=== PATIENT | male | born 1990 | race African-American/Black ===

== ENCOUNTER 2017-01-08 10:35 | Inpatient (IN) | payer OTHER ==
[2017-01-08] VITALS (7 sets, daily range): BP systolic 108–156; BP diastolic 58–91; O2SAT 95
[2017-01-08] MEDS: PANTOPRAZOLE 40MG INJ (PROTONIX) (C9113) IV SCH (09:00)
[2017-01-08] MEDS ORDERED: NS 1,000 ML IV SCH (10:43)
[2017-01-08 10:52] LABS: VENOUS BASE EXCESS 0.1 (-2.0-2.0); VENOUS O2 SATURATION 79.2 % (60.0-80.0); VENOUS PARTIAL PRESSURE CO2 59.5 mmHg (38.0-50.0); VENOUS PARTIAL PRESSURE O2 43.8 mmHg (30.0-50.0); VENOUS STANDARD HCO3 24.1 MEQ/L; VENOUS TOTAL CO2 29.9 MEQ/L (24.0-28.0)
[2017-01-08 10:56] LABS: BASO % 0.2 % (0.0-1.0); EOS # 0.1 K/mm3 (0.0-0.50); EOS % 1.7 % (0.0-3.0); LARGE UNSTAINED CELL # 0.1 K/mm3 (0.0-0.4); LARGE UNSTAINED CELL % 1.2 % (0.0-4.0); LYMPH # 1.5 K/mm3 (1.5-6.5); LYMPH % 23.4 % (24.0-44.0); MEAN CORPUSCULAR HEMOGLOBIN 27.6 pg (27.0-33.0); MEAN CORPUSCULAR HGB CONC 31.9 g/dl (32.0-36.5); MEAN CORPUSCULAR VOLUME 86.4 fl (80.0-96.0); MONO # 0.5 K/mm3 (0.0-0.8); MONO % 7.4 % (0.0-5.0); NEUTROPHILS # 4.2 K/mm3 (1.8-7.7); NEUTROPHILS % 66.1 % (36.0-66.0); PLATELET COUNT, AUTOMATED 175 k/mm3 (150-450); WHITE BLOOD COUNT 6.3 K/mm3 (4.0-10.0)
[2017-01-08] MEDS ORDERED: LORazepam 2 MG/ML VIAL (J2060) As Ordered ONE ×3 (10:58→12:15)
[2017-01-08 11:15] LABS: ABG PARTIAL PRESSURE CO2 51.2 mmHg (35.0-45.0); ABG PARTIAL PRESSURE O2 471.6 mmHg (75.0-100.0); ABG STANDARD HCO3 22.8 MEQ/L (22.0-26.0); ABG TOTAL CO2 26.5 MEQ/L (22.0-29.0); ABG pH (ARTERIAL) 7.306 UNITS (7.350-7.450)
[2017-01-08 11:27] LABS: ALBUMIN 3.8 GM/DL (3.2-5.2); ALBUMIN/GLOBULIN RATIO 1.23 (1.00-1.93); ALKALINE PHOSPHATASE 72 U/L (45-117); ALT/SGPT 29 U/L (12-78); ANION GAP 6 MEQ/L (8-16); AST/SGOT 26 U/L (15-37); BILIRUBIN,DIRECT < 0.1 MG/DL (0.0-0.2); BILIRUBIN,TOTAL 0.3 MG/DL (0.2-1.0); BLOOD UREA NITROGEN 10 MG/DL (7-18); CARBON DIOXIDE LEVEL 28 MEQ/L (21-32); CHLORIDE LEVEL 107 MEQ/L (98-107); CREATININE FOR GFR 1.21 MG/DL (0.70-1.30); GLOMERULAR FILTRATION RATE > 60.0 (>60); GLUCOSE, FASTING 129 MG/DL (70-105); POTASSIUM SERUM 4.3 MEQ/L (3.5-5.1); SODIUM LEVEL 141 MEQ/L (136-145); TOTAL PROTEIN 6.9 GM/DL (6.4-8.2)
--- NOTE | 2017-01-08 11:41 | REP ---
PORTABLE CHEST X-RAY: Single view. HISTORY: Altered mental status. FINDINGS: The lungs are poorly inflated but free of infiltrate. Cardiomediastinal silhouette is unremarkable. Pleural angles are sharp. Pulmonary vasculature is not increased. IMPRESSION: Low level of inspiration. No active disease. Signed by Jr Nguyễn MD 01/08/2017 03:52 P
[2017-01-08 11:44] LABS: OSMOLALITY SERUM 295 MOSM/KG (275-295)
[2017-01-08] MEDS ORDERED: NS 1,000 ML IV ONE (11:45)
--- NOTE | 2017-01-08 11:45 | REP ---
Clinical: Abdominal pain. Technique: Axial noncontrast images from the lung bases to the pubic symphysis with coronal and sagittal re-formations. Findings: Lung bases demonstrate trace basilar atelectasis (right greater than left). Liver, spleen, pancreas, gallbladder, bilateral adrenal glands and kidneys are normal for noncontrast evaluation. The enteric system demonstrates fecal stasis and constipation without obstruction or acute inflammatory process. Normal terminal ileum and appendix identified in the right lower quadrant. Pelvis demonstrates normal bladder and age appropriate prostate/seminal vesicles. No ascites. No free air. No obvious adenopathy. Abdominal aorta without aneurysm. Musculoskeletal structures are intact. Impression: Trace basilar atelectasis (right greater than left). Fecal stasis. No acute abdominopelvic pathology appreciated. Signed by Sharath Kaye MD 01/08/2017 11:37 A
--- NOTE | 2017-01-08 11:48 | REP ---
Clinical: Chest pain. Findings: Lung pineda demonstrate mild bibasilar atelectasis (right greater than left). No pleural effusion or pneumothorax. No significant nodule or mass lesion. Tracheobronchial tree is patent. No obvious adenopathy. Mediastinum demonstrates normal thoracic aorta and heart/pericardium. Surrounding musculoskeletal structures are intact. Impression: Mild bibasilar atelectasis (right greater than left). Signed by Sharath Kaye MD 01/08/2017 11:39 A
--- NOTE | 2017-01-08 11:50 | REP ---
CT BRAIN WITHOUT CONTRAST: 01/08/2017. Clinical history: Altered mental status. Findings: No prior studies. The material analyst film shows oxygen mask over the face. Soft tissue and bone windows for each slice level show lateral ventricles midline, symmetric and without dilatation or displacement. Third and fourth ventricles intact. Basal ganglia were symmetric. Escoto-white junction differentiation is maintained. Cortical stripe preserved. Quadrigeminal plate and suprasellar cisterns are intact. There is no vascular territory infarct, intracranial hemorrhage, mass or mass effect. Cortical stripe preserved. Brainstem and cerebellum intact. There may be some mild cerebellar tonsillar ectopia. Mastoids and the visualized sinuses were clear. The skull base and calvarium are without fracture or focal lesion. Impression: 1. There is no intracranial hemorrhage, acute infarct, edema, mass, mass effect or extra-axial fluid collection. Basal cisterns intact. 2. White matter tracts are preserved. The mastoids, visualized sinuses, skull base and calvarium grossly intact. Signed by Bill Hickman MD 01/08/2017 03:48 P
[2017-01-08] MEDS ORDERED: ETOMIDATE INJ 20MG/10ML VIAL As Ordered ONE (11:52)
[2017-01-08] MEDS ORDERED: SUCCINYLCHOLINE INJ 200 MG/10 ML VIAL (J0330) As Ordered ONE (11:53)
[2017-01-08] MEDS ORDERED: PROPOFOL 1,000 MG/100 ML VIAL As Ordered ONE (12:02)
[2017-01-08 12:26] LABS: METHADONE URINE NEGATIVE (NEGATIVE)
--- NOTE | 2017-01-08 12:26 | REP ---
Clinical: Status post intubation. Comparison: 01/08/2017 and 11:06 a.m.. Findings: Endotracheal tube 3 cm above the merissa. Nasogastric tube courses below left hemidiaphragm. Mediastinum and cardiac silhouette are normal. Medial right lower lobe atelectasis cannot be excluded. The remainder of lung pineda are well-aerated and clear. No pneumothorax. No effusion. Skeletal structures intact. Impression: Lines and tubes in satisfactory position. Cannot exclude medial right lower lobe atelectasis. Signed by Sharath Kaye MD 01/08/2017 12:17 P
[2017-01-08] MEDS ORDERED: MIDAZOLAM INJ 2 MG/2 ML VIAL (J2250) As Ordered ONE (12:31)
[2017-01-08] MEDS ORDERED: REFRIGERATOR IV KEYS XX PRN ×2 (12:45→14:45)
[2017-01-08] MEDS ORDERED: MIDAZOLAM HCL 50 MG in D5W 40 ML IV SCH (12:45)
[2017-01-08] MEDS ORDERED: MIDAZOLAM HCL 100 MG in D5W 80 ML IV SCH (13:00)
[2017-01-08] MEDS ORDERED: levETIRAcetam INJection 1,000 MG in D5W 100 ML IV ONE (13:15)
[2017-01-08] MEDS: HEPARIN SOD (PORCINE) 5000 UNITS/ML VIAL SC SCH ×2 (14:00→21:21)
[2017-01-08 14:13] LABS: THYROXINE (T4) 12.2 UG/DL (4.5-12.0)
[2017-01-08 14:23] LABS: ABG BASE EXCESS -2.4 (-2.0-2.0); ABG HCO3 23.3 MEQ/L (22.0-26.0); ABG PARTIAL PRESSURE CO2 43.8 mmHg (35.0-45.0); ABG PARTIAL PRESSURE O2 134.5 mmHg (75.0-100.0); ABG STANDARD HCO3 22.5 MEQ/L (22.0-26.0); ABG TOTAL CO2 24.7 MEQ/L (22.0-29.0); ABG pH (ARTERIAL) 7.344 UNITS (7.350-7.450)
[2017-01-08] MEDS: D5W/LR 1,000 ML IV SCH (14:45)
[2017-01-08] MEDS ORDERED: PROPOFOL 200 MG/20 ML VIAL IV ONE ×2 (14:45)
[2017-01-08] MEDS ORDERED: ETOMIDATE INJ 20MG/10ML VIAL IV ONE (14:45)
[2017-01-08] MEDS ORDERED: MORPHINE 2 MG/ML 1ML SYRINGE IV PRN (14:45)
[2017-01-08] MEDS ORDERED: SUCCINYLCHOLINE INJ 200 MG/10 ML VIAL (J0330) IV ONE (14:45)
[2017-01-08] MEDS ORDERED: PROPOFOL 1,000 MG in APPROPRIATE DILUENT 1 EA IV SCH (14:45)
[2017-01-08] MEDS ORDERED: LORazepam 2 MG TAB PO STA ×3 (14:51→14:52)
[2017-01-08] MEDS ORDERED: MIDAZOLAM INJ 2 MG/2 ML VIAL (J2250) IV ONE ×4 (15:00→15:30)
[2017-01-08] MEDS ORDERED: LORazepam 2 MG/ML VIAL (J2060) IV STA ×3 (15:11)
[2017-01-08] MEDS ORDERED: ATROPINE SULF 1MG/10ML SYRINGE (J0461) IV STA (15:12)
[2017-01-08] MEDS: MIDAZOLAM HCL 100 MG in D5W 80 ML IV SCH (16:00)
[2017-01-08] MEDS: IPRATROPIUM 0.5MG/ALBUTEROL 2.5MG INH SOL UD 3ML (DUONEB)(J7620) NEB SCH ×3 (16:00→23:12)
--- NOTE | 2017-01-08 17:13 | REP ---
Clinical: Hypoxic injury . Comparison: 01/08/2017 and 11:11 a.m. . Findings: The ventricles, sulci, and cisterns are normal in position and appearance. Escoto-white differentiation is maintained. No acute intracranial hemorrhage, mass/mass effect, pathology or trauma/injury. No evidence for acute infarction. No extra-axial fluid collection. Calvarium is intact. Paranasal sinuses and mastoid air cells are clear. Impression: Normal noncontrast head CT. No evidence for acute intracranial pathology or trauma/injury. Signed by Sharath Kaye MD 01/08/2017 05:04 P
[2017-01-08] MEDS: PROPOFOL 1,000 MG in APPROPRIATE DILUENT 1 EA IV SCH (17:29)
[2017-01-08 18:17] LABS: ABG BASE EXCESS 0.9 (-2.0-2.0); ABG HCO3 24.6 MEQ/L (22.0-26.0); ABG PARTIAL PRESSURE CO2 36.7 mmHg (35.0-45.0); ABG PARTIAL PRESSURE O2 174.7 mmHg (75.0-100.0); ABG STANDARD HCO3 25.3 MEQ/L (22.0-26.0); ABG TOTAL CO2 25.8 MEQ/L (22.0-29.0); ABG pH (ARTERIAL) 7.445 UNITS (7.350-7.450)
--- NOTE | 2017-01-08 19:33 | ECGEPIP ---
Stationary ECG Study [facility] - ED Test Date: 2017-01-08 Pat Name: PARMINDER CUEVAS Department: Room: - Gender: M Bakery Clerk: michael : 1990 Requested By: Ailin Castorena Order Number: [id number] Reading MD: Jimi Sutton Measurements Intervals [place] Rate: 97 P: 48 SD: 142 QRS: 16 QRSD: 109 T: 36 QT: 333 QTc: 423 Interpretive Statements SINUS RHYTHM INDETERMINATE AXIS POSSIBLE LAE INCOMPLETE RIGHT BUNDLE BRANCH BLOCK NO PRIORS Electronically Signed On 01-08-2017 19:33:17 EDT by Jimi Sutton
[2017-01-08] MEDS: CHLORHEXIDINE ORAL RINSE 0.12%/15ML 120ML BOTTLE MT SCH (20:46)
[2017-01-08] MEDS: levETIRAcetam INJection 500 MG in D5W MINI-BAG PLUS 100 ML IV SCH ×2 (20:47→21:17)
[2017-01-08] MEDS ORDERED: levETIRAcetam INJection 1,000 MG in D5W 100 ML IV SCH (21:00)
[2017-01-09] VITALS (21 sets, daily range): BP systolic 110–168; BP diastolic 55–94; O2SAT 100
[2017-01-09] MEDS: D5W/LR 1,000 ML IV SCH ×3 (00:22→16:14)
[2017-01-09] MEDS: PROPOFOL 1,000 MG in APPROPRIATE DILUENT 1 EA IV SCH ×4 (00:22→18:10)
[2017-01-09] MEDS: IPRATROPIUM 0.5MG/ALBUTEROL 2.5MG INH SOL UD 3ML (DUONEB)(J7620) NEB SCH ×6 (03:12→23:33)
[2017-01-09] MEDS: MIDAZOLAM HCL 100 MG in D5W 80 ML IV SCH (03:22)
[2017-01-09 05:05] LABS: BASO % 0.3 % (0.0-1.0); EOS # 0.2 K/mm3 (0.0-0.50); EOS % 2.1 % (0.0-3.0); LARGE UNSTAINED CELL # 0.2 K/mm3 (0.0-0.4); LARGE UNSTAINED CELL % 1.7 % (0.0-4.0); LYMPH # 2.3 K/mm3 (1.5-6.5); LYMPH % 23.1 % (24.0-44.0); MEAN CORPUSCULAR HEMOGLOBIN 27.8 pg (27.0-33.0); MEAN CORPUSCULAR HGB CONC 32.1 g/dl (32.0-36.5); MEAN CORPUSCULAR VOLUME 86.7 fl (80.0-96.0); MONO # 0.9 K/mm3 (0.0-0.8); MONO % 9.2 % (0.0-5.0); NEUTROPHILS # 5.9 K/mm3 (1.8-7.7); NEUTROPHILS % 63.6 % (36.0-66.0); PLATELET COUNT, AUTOMATED 153 k/mm3 (150-450); RED CELL DISTRIBUTION WIDTH 13.8 % (11.5-14.5); WHITE BLOOD COUNT 9.2 K/mm3 (4.0-10.0)
[2017-01-09] MEDS: HEPARIN SOD (PORCINE) 5000 UNITS/ML VIAL SC SCH ×3 (05:33→21:44)
[2017-01-09 05:34] LABS: ALKALINE PHOSPHATASE 58 U/L (45-117); ALT/SGPT 24 U/L (12-78); ANION GAP 8 MEQ/L (8-16); AST/SGOT 30 U/L (15-37); BILIRUBIN,TOTAL 0.6 MG/DL (0.2-1.0); BLOOD UREA NITROGEN 5 MG/DL (7-18); CALCIUM LEVEL 8.4 MG/DL (8.5-10.1); CARBON DIOXIDE LEVEL 22 MEQ/L (21-32); CHLORIDE LEVEL 115 MEQ/L (98-107); CHOLESTEROL LEVEL 165 MG/DL (< 200); CREATININE FOR GFR 1.04 MG/DL (0.70-1.30); GLOMERULAR FILTRATION RATE > 60.0 (>60); GLUCOSE, FASTING 90 MG/DL (70-105); PHOSPHORUS LEVEL 2.2 MG/DL (2.5-4.9); SODIUM LEVEL 145 MEQ/L (136-145); TRIGLYCERIDES LEVEL 131 MG/DL (<150)
[2017-01-09 05:35] LABS: ALBUMIN 3.3 GM/DL (3.2-5.2); ALBUMIN/GLOBULIN RATIO 0.97 (1.00-1.93); TOTAL PROTEIN 6.7 GM/DL (6.4-8.2)
[2017-01-09 05:52] LABS: ABG BASE EXCESS 2.7 (-2.0-2.0); ABG HCO3 26.8 MEQ/L (22.0-26.0); ABG PARTIAL PRESSURE CO2 39.2 mmHg (35.0-45.0); ABG PARTIAL PRESSURE O2 140.1 mmHg (75.0-100.0); ABG STANDARD HCO3 26.9 MEQ/L (22.0-26.0); ABG pH (ARTERIAL) 7.452 UNITS (7.350-7.450)
[2017-01-09] MEDS: PANTOPRAZOLE 40MG INJ (PROTONIX) (C9113) IV SCH (07:44)
[2017-01-09] MEDS: levETIRAcetam INJection 500 MG in D5W MINI-BAG PLUS 100 ML IV SCH ×4 (07:45→20:13)
[2017-01-09] MEDS: CHLORHEXIDINE ORAL RINSE 0.12%/15ML 120ML BOTTLE MT SCH ×2 (07:45→20:13)
--- NOTE | 2017-01-09 07:47 | REP ---
Clinical: Respiratory failure. Comparison: 01/08/2017 at 12:18 p.m. Findings: Endotracheal tube is 1 cm from the merissa. Nasogastric tube courses below left hemidiaphragm. Mediastinum and cardiac silhouette are stable. Lung pineda are relatively clear without obvious consolidation, effusion, or pneumothorax. Skeletal structures intact. Impression: Endotracheal tube approaches the merissa and may warrant reevaluation. Signed by Sharath Kaye MD 01/09/2017 07:38 A
[2017-01-09] MEDS: PIPERACILLIN/TAZOBACTAM SOD 3.375 GM in D5W MINI-BAG PLUS 50 ML IV SCH ×2 (11:11→17:49)
[2017-01-09] MEDS: ACETAMINOPHEN 325 MG/10.15 ML UDC GT PRN ×2 (11:11→18:10)
[2017-01-09] MEDS: MIDAZOLAM INJ 2 MG/2 ML VIAL (J2250) IV PRN ×4 (15:09→19:50)
--- NOTE | 2017-01-09 16:15 | HPE ---
DATE OF ADMISSION: 01/08/2017 CHIEF COMPLAINT: Patient ingested unknown substance. HISTORY OF PRESENT ILLNESS: This is a 26-year-old male with an unobtainable past medical history who came in unresponsive via ambulance from [facility]. The patient's information was obtained by the correction officers (COs) of the care home. They state that the patient was found unresponsive at 9 a.m. in his care home cell and he was foaming by the mouth. Once patient was brought to the infirmary room of the care home, he was combative and thrashing around. They state that [facility] En route to the emergency room (ER) , the COs note that the patient was speaking gibberish; it was like broken language or a different language that he was trying to enunciate. The COs denies any any witness seizure activities. In the ER, The patient was combative and thrashing around. He was given the following medication: 20 mg of etomidate, 6 mg of Ativan, 100 mg of succinylcholine, 40 mg IV of propofol two times. The patient had to have a four-point restraint while in the ER. Patient was intubated in the ER at 12 o'clock pm by Dr. العراقي. The propofol drip was started at 5 mcg/kg. When I examined the patient, the propofol drip was set at 35 mcg. Per nursing, the patient was combative when he came into the ER. Ventilation settings in the ER were initially set on SIMV volume control, plus pressure support with volume tidal of 480, FiO2 of 30% at SIMV volume control for pressure support of 16 and a PEEP of 5. Minute ventilation was 7.6. Patient also had a midazolam drip of 6 mL per hour at the time of exam. Blood gases drawn at 11:07, arterial showed an arterial blood gas (ABG) pH of 7.306, an ABG pCO2 of 51.2, an ABG pO2 of 47.6 with an ABG oxygen saturation of 99.9. When we saw the patient later on in the afternoon, we changed the ventilation settings to pressure-regulated volume control setting. The patient was resting comfortably on the bed with some minimal muscle contractility of the upper and lower extermity. REVIEW OF SYSTEMS: Unobtainable due to patient being intubated and unresponsive. PAST MEDICAL HISTORY: Unobtainable. PAST SURGICAL HISTORY: Unobtainable. PAST HOSPITALIZATION: Unobtainable. ALLERGIES: No known drug allergies. CURRENT MEDICATION: Unobtainable. SOCIAL HISTORY: Unobtainable. PHYSICAL EXAM: Vitals: Temperature 98.4 (rectal). Blood pressure 194/104, mean arterial pressure (MAP) of 134. Respiratory rate of 16. Pulse of 112. Pulse oximeter of 99%. GENERAL: Patient has an endotracheal tube placed. The patient does not look in any acute distress. He is resting comfortably. HEENT: Pupils are dilated and react sluggishly but are reactive. HEART EXAM: S1 and S2 sounds, 2/6, faint but present. No murmurs, gallops, or rubs are appreciated. LUNGS: Clear to auscultate bilaterally. No rhonchi, rales, wheezing, or crackles appreciated. ABDOMEN: Bowel sounds present. No hepatomegaly, splenomegaly, or organomegaly appreciated. No distention of abdomen is appreciated. EXTREMITIES: No peripheral edema or cyanosis appreciated. NEUROLOGICAL: Negative Babinski sign bilaterally. Positive muscle contraction (voluntary) of the upper and lower extremities bilateral. LABS: CBC: WBC 6.3, hemoglobin 14.5, hematocrit 45.3, platelet count of 175, neutrophils 66.1, lymphocytes of 23.4, monocyte 7.4. Chemistries: Sodium of 141, potassium chloride of 107, carbon dioxide of 28, BUN of 10, creatinine of 1.21, anion gap of 6, and fasting glucose of 129. Lactic acid of 2.2, calcium of 9, total bilirubin of 0.3, AST is 26, ALT is 29, alkaline phosphatase of 79, total creatinine kinase 418. Troponin I is less than 0.0.2. Total protein of 6.9, albumin of 3.8. TSH 0.104, repeat 0.101. Free T4 of 4.5, thyroxine 12.2, T3 uptake of 37. Urine myoglobin negative. Toxicology: Salicylate 2.1, acetaminophen less than 2.0, opioid negative, methadone negative, barbiturates negative, phencyclidine (PCP) negative, amphetamines negative, benzodiazepine negative, cocaine negative, cannabinoids negative, ethanol is less than 0.003. Chest CT reported mild bibasilar atelectasis (right greater than the left). Reviewed and cannot disagree with dictated report Latest chest x-ray reported that lines and tubes are in satisfactory position, but it cannot exclude that middle/right lower lobe atelectasis. Reviewed cannot disagree with dictated report. ASSESSMENT: 1. Respiratory failure secondary to unknown drug ingestion. 2. Unknown drug ingestion, suspect Ketamine 3. Altered mental status versus seizure. 4. Bibasilar atelectasis bilaterally. PLAN: We will continue the patient on pressure regulated volume control ventilation settings. Because we are no sure of what the patient has ingested, we will keep the patient ventilated for the next 24 hours and then we will decide to wean and extubate the patient then. Because of the patient's unknown mental status and involuntary/voluntary movements of his muscles, we have consulted Dr. Caldwell, neurology, and will await his recommendations. We have also placed the patient on Keppra with dextrose at 1000 mg at 415 mL per hour. We will continue the patient on midazolam 2 mg IV as needed for agitation. Will also continue giving the patient morphine sulfate 2 mg IV every 2 hours as needed for pain. GI prophylaxis. Protonix 40 mg IV daily, scheduled. Deep venous thrombosis (DVT) prophylaxis. Heparin 5000 units subcutaneously scheduled every 8 hours. Patient is nothing by mouth diet. An orogastric (OG) tube is to be placed. We will be getting daily ABGs, daily portable chest x-rays while the patient is intubated, and a critical care profile panel while the patient is on the intensive care unit (ICU). Also will consider possible EEG inpatient to rule out seizures. My preceptor for this patient encounter was Dr. Lucho Moeller. The preceptor was physically present during the encounter and was fully available. As needed, all aspects of the patient interview, examination, medical decision making process, and medical care plan development were reviewed and approved by the preceptor. The preceptor is aware and concurs with the plan as stated in the body of this note and will attest to such by his/her cosignature. Above reviewed....Continue level of supportive care....Wean as able Ulcer/ DVT prophylaxis in place Await formal neuro eval See orders.....Critically ill MTDD
--- NOTE | 2017-01-09 16:52 | CR ---
DATE OF CONSULTATION: 01/08/2017 REFERRING PROVIDER: Dr. Moeller REASON FOR CONSULTATION: Respiratory failure with abnormal involuntary movements, suspected seizures. The patient is a 26-year-old incarcerated male who presented to [facility] after being found in his cell unresponsive with a pack of ketamine in his pocket. The patient was found and brought to the hospital. He was intubated in the emergency department. He had an episode of hypoxia with a blood oxygen saturation of approximately 40-50% only for a few moments. The patient was intubated and has required heavy sedation on 6 mg of Ativan, Versed 8 mg was given, Keppra 1000 mg was given and a propofol drip and Versed drip at 6 mg an hour has been initiated. During this time the patient was noted to have abnormal involuntary movements of the lower extremities possibly thought to be due to posturing. The patient also had fully dilated pupils measuring about [address] was initially read as normal. However, due to the angle of the study not being centered, there was a question whether there was any pressure onto the brain stem and any blockage of the fourth ventricle due to herniation so a repeat head CT was recommended. On evaluation, the patient is intubated, sedated. He is seen to have tremulousness of his lower extremities at times almost like shivering. He is at times noted to flex at the elbows, raising his arms up towards ET tube. His eyes are closed. Doll's eye is not present. Pupils were 5 mm, but reactive to light. Facial grimacing was limited. The patient did withdraw to noxious stimuli involving the lower extremities minimally. He was able to withdraw to noxious stimuli in his left arm more so than the right arm. Babinski signs were absent bilaterally. The patient was heavily sedated with propofol and due to fear of the patient waking up and pulling out the ET tube, the sedation was not lessened. This likely contributed towards dampening the neurological exam. Head CT was completed stat, reviewed independently, found to not show any acute intracranial disease. Report came back as negative for any acute intracranial process or edema. Escoto-white differentiation in the brain matter was noted. The patient's urine toxicology has been negative. Urine myoglobin was negative. LABORATORY DATA: Showed a lactic acid of 2.2. Normal CBC, CMP. CPK was elevated at 418. AST and ALT were normal. Ammonia level normal at 23. TSH is 0.101 which was low and free T4 was elevated at 4.5 suggesting hyperthyroidism. REVIEW OF SYSTEMS: Unobtainable due to the patient's current medical status. FAMILY HISTORY, SOCIAL HISTORY, PAST MEDICAL HISTORY, PAST SURGICAL HISTORY: Unobtainable. No records were sent with the patient. VITAL SIGNS: Blood pressure is 154/103, pulse rate 81, respiratory rate is 17, temperature 99.1 degrees rectally, 95% oxygenation on 30% FiO2. PHYSICAL EXAMINATION: The patient is lying in bed with tremulousness of the lower extremities which appears to be shivering. The patient is noted to spontaneously have movement of the upper extremities randomly. Pupils are 5 mm, round and reactive to light sluggishly. Doll's eye is negative. Corneal response is present on the left and minimally present on the right. Facial grimacing to noxious stimuli is not adequately present. However, the patient does move away from the noxious stimuli by turning his head. The patient withdraws the upper extremities to noxious stimuli minimally on the right hand, mildly on the left. The patient flexes his quadriceps to noxious stimuli of both lower extremities. Babinski signs are clearly reduced. Deep tendon reflexes are 2+ in the upper extremities and 2+ at the lower extremities. Rest of neurological examination hard to assess with current neurological state and sedation. ASSESSMENT: 1. 26-year-old male with abnormal involuntary movements which did not appear to be seizure-like at this time. Recommend EEG to rule out any subclinical seizures nonetheless. 2. Respiratory failure likely secondary to illicit substance, possibly ketamine as found on the patient's body as reported by the correctional officers at bedside. PLAN: 1. Obtain EEG. 2. Obtain MRI of brain without contrast. 3. Continue Keppra 1000 mg by mouth twice a day, gradually lighten Versed and propofol as medically necessary for neurological assessments and to gradually assess if the patient can be weaned off the ventilator. 4. Will continue to follow.
[2017-01-10] VITALS (21 sets, daily range): BP systolic 113–156; BP diastolic 61–94; O2SAT 100
[2017-01-10] MEDS: PIPERACILLIN/TAZOBACTAM SOD 3.375 GM in D5W MINI-BAG PLUS 50 ML IV SCH ×5 (00:12→22:45)
[2017-01-10] MEDS: D5W/LR 1,000 ML IV SCH ×4 (00:12→22:45)
[2017-01-10] MEDS: PROPOFOL 1,000 MG in APPROPRIATE DILUENT 1 EA IV SCH ×2 (00:12→04:19)
[2017-01-10] MEDS: MIDAZOLAM INJ 2 MG/2 ML VIAL (J2250) IV PRN ×2 (01:37→05:07)
[2017-01-10] MEDS: IPRATROPIUM 0.5MG/ALBUTEROL 2.5MG INH SOL UD 3ML (DUONEB)(J7620) NEB SCH ×2 (03:44→08:20)
[2017-01-10] MEDS: HEPARIN SOD (PORCINE) 5000 UNITS/ML VIAL SC SCH ×3 (05:22→21:16)
[2017-01-10 05:28] LABS: BASO % 0.1 % (0.0-1.0); EOS # 0.1 K/mm3 (0.0-0.50); EOS % 1.2 % (0.0-3.0); LARGE UNSTAINED CELL # 0.2 K/mm3 (0.0-0.4); LARGE UNSTAINED CELL % 1.8 % (0.0-4.0); LYMPH # 2.2 K/mm3 (1.5-6.5); LYMPH % 20.1 % (24.0-44.0); MEAN CORPUSCULAR HEMOGLOBIN 27.9 pg (27.0-33.0); MEAN CORPUSCULAR HGB CONC 33.6 g/dl (32.0-36.5); MEAN CORPUSCULAR VOLUME 83.1 fl (80.0-96.0); MONO # 0.8 K/mm3 (0.0-0.8); NEUTROPHILS # 7.5 K/mm3 (1.8-7.7); NEUTROPHILS % 69.7 % (36.0-66.0); PLATELET COUNT, AUTOMATED 123 k/mm3 (150-450); RED CELL DISTRIBUTION WIDTH 13.8 % (11.5-14.5); WHITE BLOOD COUNT 10.7 K/mm3 (4.0-10.0)
[2017-01-10 05:48] LABS: ALBUMIN 3.3 GM/DL (3.2-5.2); ALBUMIN/GLOBULIN RATIO 1.18 (1.00-1.93); ALKALINE PHOSPHATASE 56 U/L (45-117); ALT/SGPT 24 U/L (12-78); ANION GAP 9 MEQ/L (8-16); AST/SGOT 35 U/L (15-37); BILIRUBIN,TOTAL 0.7 MG/DL (0.2-1.0); BLOOD UREA NITROGEN 5 MG/DL (7-18); CALCIUM LEVEL 8.5 MG/DL (8.5-10.1); CARBON DIOXIDE LEVEL 27 MEQ/L (21-32); CHLORIDE LEVEL 112 MEQ/L (98-107); CHOLESTEROL LEVEL 157 MG/DL (< 200); CREATININE FOR GFR 1.13 MG/DL (0.70-1.30); GLOMERULAR FILTRATION RATE > 60.0 (>60); GLUCOSE, FASTING 95 MG/DL (70-105); PHOSPHORUS LEVEL 3.2 MG/DL (2.5-4.9); POTASSIUM SERUM 3.5 MEQ/L (3.5-5.1); SODIUM LEVEL 148 MEQ/L (136-145); TOTAL PROTEIN 6.1 GM/DL (6.4-8.2); TRIGLYCERIDES LEVEL 95 MG/DL (<150)
[2017-01-10 05:58] LABS: ABG BASE EXCESS 2.4 (-2.0-2.0); ABG HCO3 25.5 MEQ/L (22.0-26.0); ABG PARTIAL PRESSURE CO2 34.6 mmHg (35.0-45.0); ABG PARTIAL PRESSURE O2 98.4 mmHg (75.0-100.0); ABG STANDARD HCO3 26.6 MEQ/L (22.0-26.0); ABG TOTAL CO2 26.5 MEQ/L (22.0-29.0); ABG pH (ARTERIAL) 7.485 UNITS (7.350-7.450)
--- NOTE | 2017-01-10 07:52 | REP ---
Clinical: Respiratory failure. Comparison: 01/09/2017 at 07:02 a.m. Findings: Endotracheal tube is approximately 3.2 cm above the merissa. Nasogastric tube courses below left hemidiaphragm. Mediastinum and cardiac silhouette are normal. The lung pineda are relatively clear and without focal consolidation, effusion, or pneumothorax. Lung volumes are symmetric and normal. The skeletal structures are intact. Impression: Lines and tubes in satisfactory position. No obvious acute cardiopulmonary process. Signed by Sharath Kaye MD 01/10/2017 07:43 A
[2017-01-10] MEDS: levETIRAcetam INJection 500 MG in D5W MINI-BAG PLUS 100 ML IV SCH ×2 (10:12)
--- NOTE | 2017-01-10 10:57 | CCN ---
CRITICAL CARE NOTE: DATE OF VISIT: 01/09/2017 START TIME: 904 hours STOP TIME: 941 hours I again attended Mr. Neely here in the intensive care unit. He remains intubated, sedated, mechanically ventilated. Required both propofol and Versed yesterday to achieve adequate sedation levels. We have been able to wean some of that back this morning. He has less in the way of involuntary motion this morning. Maximum temperature (Tmax) overnight 100.5, blood pressure 113-168 systolic. Heart rate 50s to 80s with a sinus mechanism. Respiratory rate 16-20. Intake and output (I and O) midnight to midnight 2460 mL in with 2225 mL out. Most recent laboratories show a white blood cells at 9.2, hemoglobin 15.6, platelet count 153,000, 63% segs, no bands. Sodium 145, potassium of 4.0, chloride 115, CO2 of 22, BUN 5, creatinine 1.04. CK 665. Arterial blood gas done on a pressure-regulated volume control (PRVC) mode, rate of 16, tidal volume 450, PEEP of 5, FiO2 of 30% has a pH of 7.452, pCO2 of 39.2, and a pO2 of 140.1. Saturation 99.1%. Chest x-ray shows tubes in good position. No infiltrate. Aeration is equal bilaterally. There are no acute findings. He had a CT scan of the brain times two yesterday, which show no edema and no acute pathology. ON EXAM: He is sedated. Pupils do react. Sclerae are clear. Trachea is in the midline. Chest is clear to both to auscultation and percussion. No significant focal adventitious breath sounds are identified. Cardiac exam is regular with no convincing murmur or gallop. Peripheral pulses palpable. No obvious edema. Abdomen is soft and nontender with active bowel sounds. No convincing organomegaly. Neurologically, he is sedate but does move all extremities once sedation lightened. The most pressing problems requiring my presence at the bedside: 1. Respiratory failure secondary to drug overdose. 2. Drug overdose suspected as ketamine. 3. Encephalopathy secondary to the above. Cannot rule out an anoxic injury given his presentation. 4. Question of underlying seizure activity. At this point, we will lighten his sedation. I would greatly appreciate the help of neurology. We will continue his current level of IV hydration as well as altering deep venous thrombosis (DVT) prophylaxis. He is scheduled for an EEG today, and hopefully we will be able to get that done. We will proceed as outlined above. Overall, he remains critically ill. If he is able to have his sedation lightened, my hope is we can progress with ventilator weaning at some point. I left the bedside at 0942 hours. 37 minutes critical care time at the bedtime, not including procedures. OMAYRA
--- NOTE | 2017-01-10 13:17 | CCN ---
DATE OF SERVICE: 01/10/2017 START TIME: 809 STOP TIME: 0849 I again attended Reji Neely here in the intensive care unit. Patient was examined and his chart reviewed. He remains intubated, sedated, mechanically ventilated. T-max overnight 99.6. Had a T-max yesterday morning of 101.8. Blood pressure 113-130s systolic. Heart rate 60-100 with a sinus mechanism. Respiratory rate 12-18. Ins and outs from midnight to midnight 4997 mL in with 4265 mL out. Most recent laboratories show white blood cell count of 10.7, hemoglobin 14.4, platelet count 123,000. 60% segs, 20% lymphs, no bands. Sodium 148, potassium 3.5, chloride 112, CO2 27, BUN 5, creatinine 1.13. Glucose 95. CK 1185 with a LVH of 262. Blood gas this morning done on a pressure regulated volume control (PRVC), rate is 16, tidal volume 480, PEEP of 5, FiO2 of 30%, has a pH of 7.485, pCO2 34.6, pO2 of 98.4 with a saturation of 98.2%. Chest x-ray shows the endotracheal tube and orogastric tube to be in good position. No acute findings. ON EXAM: He is sedate. He moves all extremities when stimulated. Pupils are large but do react. Membranes moist, trachea is in the midline. No jugular venous distention (JVD). Chest is clear to auscultation and percussion. Expansion symmetric. No significant focal adventitious breath sounds are identified. Cardiac exam is regular with no gallop. Peripheral pulses palpable. No edema. Abdomen is soft and nontender with normal active bowel sounds. No convincing organomegaly or masses. No cyanosis. No clubbing. Neurologically, he is sedate but moves all extremities. The most pressing problems requiring my presence at the bedside: 1. Respiratory alkalosis. 2. Respiratory failure requiring ventilatory support. 3. Drug overdose suspected as ketamine. 4. Fever, question aspiration. At this point, my hopes is that we can discontinue sedation to further evaluate his neurologic status. My hopes is that this is truly nonfocal, and if so, we might be able to achieve extubation today. If we are not able to, then he certainly with need EEG and an MRI. If we are not able to extubate him today, then I will begin enteral feeds. At this point, we will continue also deep venous thrombosis (DVT) prophylaxis and empiric antimicrobics in view of his fever. He continues on pulmonary toilet. We will culture his sputum. Overall he remains critically ill. I left the bedside at 0849 hours. I appreciate the input of the neurology service. 39 minutes of critical care time delivered at the bedside not including procedures. OMAYRA
[2017-01-10] MEDS: levETIRAcetam 250MG TABLET (KEPPRA) PO SCH (21:16)
[2017-01-11] VITALS: BP 129/68
[2017-01-11 04:00] VITALS: BP 128/72
[2017-01-11 05:00] LABS: BASO # 0.1 K/mm3 (0.0-0.2); BASO % 0.6 % (0.0-1.0); EOS # 0.4 K/mm3 (0.0-0.50); EOS % 4.4 % (0.0-3.0); LARGE UNSTAINED CELL # 0.1 K/mm3 (0.0-0.4); LARGE UNSTAINED CELL % 1.3 % (0.0-4.0); LYMPH # 2.7 K/mm3 (1.5-6.5); LYMPH % 25.9 % (24.0-44.0); MEAN CORPUSCULAR HGB CONC 31.9 g/dl (32.0-36.5); MEAN CORPUSCULAR VOLUME 84.6 fl (80.0-96.0); MONO # 0.6 K/mm3 (0.0-0.8); MONO % 5.8 % (0.0-5.0); NEUTROPHILS # 6.1 K/mm3 (1.8-7.7); PLATELET COUNT, AUTOMATED 149 k/mm3 (150-450); RED CELL DISTRIBUTION WIDTH 13.9 % (11.5-14.5); WHITE BLOOD COUNT 9.8 K/mm3 (4.0-10.0)
[2017-01-11 05:33] LABS: ALBUMIN 2.8 GM/DL (3.2-5.2); ALBUMIN/GLOBULIN RATIO 0.82 (1.00-1.93); ALKALINE PHOSPHATASE 45 U/L (45-117); ALT/SGPT 19 U/L (12-78); ANION GAP 6 MEQ/L (8-16); AST/SGOT 39 U/L (15-37); BILIRUBIN,TOTAL 1.1 MG/DL (0.2-1.0); BLOOD UREA NITROGEN 5 MG/DL (7-18); CALCIUM LEVEL 8.1 MG/DL (8.5-10.1); CARBON DIOXIDE LEVEL 27 MEQ/L (21-32); CHLORIDE LEVEL 113 MEQ/L (98-107); CHOLESTEROL LEVEL 135 MG/DL (< 200); CREATININE FOR GFR 0.95 MG/DL (0.70-1.30); GLOMERULAR FILTRATION RATE > 60.0 (>60); GLUCOSE, FASTING 94 MG/DL (70-105); MAGNESIUM LEVEL 1.8 MG/DL (1.8-2.4); PHOSPHORUS LEVEL 3.1 MG/DL (2.5-4.9); POTASSIUM SERUM 3.8 MEQ/L (3.5-5.1); SODIUM LEVEL 146 MEQ/L (136-145); TOTAL PROTEIN 6.2 GM/DL (6.4-8.2); TRIGLYCERIDES LEVEL 57 MG/DL (<150)
[2017-01-11] MEDS: PIPERACILLIN/TAZOBACTAM SOD 3.375 GM in D5W MINI-BAG PLUS 50 ML IV SCH ×4 (05:48→22:54)
[2017-01-11] MEDS: HEPARIN SOD (PORCINE) 5000 UNITS/ML VIAL SC SCH ×3 (05:50→22:53)
[2017-01-11 08:00] VITALS: BP 131/84
[2017-01-11] MEDS: levETIRAcetam 250MG TABLET (KEPPRA) PO SCH (08:36)
[2017-01-11] MEDS ORDERED: MIRALAX *UNIT DOSE* 17GM PACKET PO SCH (09:00)
[2017-01-11] MEDS ORDERED: SENOKOT S TAB PO SCH (09:00)
[2017-01-11] MEDS: LR 1,000 ML IV SCH ×3 (09:39→20:36)
--- NOTE | 2017-01-11 09:58 | EEG ---
DATE OF EE01/09/2017 REFERRING PHYSICIAN: Dr. Lucho Moeller DIAGNOSIS: Seizure. EEG NUMBER: [id number] HISTORY: Patient is a 26-year-old inmate who was admitted at [facility] due to altered mental status. He was found to have ketamine packet. He was intubated and was on Ativan, propofol, and Dilaudid. He has been extubated and is more awake. This EEG was done to rule out epileptic potential and assess degree of encephalopathy. TECHNICAL DESCRIPTION: This digital EEG was recorded by 21 scalp ear and two EKG electrodes and was reviewed in bipolar and referential montages following reformatting in [employer]. INTERPRETATION: The patient was noted to be in awake and drowsy states during this EEG. Resting awake background rhythm consisted of 6-7 Hz theta activity measuring 15-40 microvolts in amplitude. Stage I and II sleep were reviewed and were symmetric bilaterally. Intermittent bilateral central and temporal delta slowing was also noted. Hyperventilation could not be performed. Photic stimulation remained unremarkable. EKG revealed normal sinus rhythm. No focal, lateralizing or epileptiform abnormalities were seen. No clinical or electrographic seizures were recorded. CONCLUSION: This EEG in awake, drowsy states, stage I and II sleep is abnormal due to presence of generalized slowing and disorganization of background consistent with nonspecific diffuse cerebral dysfunction such as seen in mild-moderate encephalopathy due to multiple potential causes including toxic, metabolic, infectious, autoimmune, medication related or multifocal structural abnormalities of brain. No epileptiform abnormalities were seen. Clinical correlation is recommended.
[2017-01-11 12:00] VITALS: BP 122/74
[2017-01-11] MEDS ORDERED: GASTROGRAFIN SOLUTION 30ML PO ONE (13:00)
[2017-01-11] MEDS ORDERED: ISOVUE-370 76% 100ML VIAL (Q9967) As Ordered ONE (13:22)
[2017-01-11] MEDS ORDERED: GASTROGRAFIN SOLUTION 30ML (Q9963) PO ONE (13:30)
--- NOTE | 2017-01-11 13:55 | REP ---
Clinical: Fever of unknown origin with abdominal pain and elevated bilirubin. Technique: Axial contrast enhanced images from the lung bases to the pubic symphysis using 100 ml Isovue 370 intravenous contrast material with coronal and sagittal re-formations. Comparison: 01/08/2017. Findings: Minimal residual right basilar atelectasis is improved. Visualized heart and pericardium normal. Liver, spleen, pancreas, gallbladder, bilateral adrenal glands and kidneys are normal. The enteric system is without obstruction or acute inflammatory process. A small amount of free fluid is suggested in the right lower quadrant and extends into the pelvis which is of uncertain etiology. The appendix appears relatively normal. Pelvis demonstrates normal bladder and age appropriate prostate/seminal vesicles. No free air. No obvious significant adenopathy or mass lesion. Vasculature appears normal. Musculoskeletal structures are intact and stable. Impression: 1. Very minimal residual right basilar atelectasis. 2. Small amount of free fluid in the pelvis and right lower quadrant of uncertain etiology. The appendix is identified and normal caliber. 3. No further acute abdominopelvic pathology appreciated. Signed by Sharath Kaye MD 01/11/2017 01:47 P
[2017-01-11 16:00] VITALS: BP 134/89
--- NOTE | 2017-01-11 16:37 | IPN ---
DATE: 01/11/2017 The patient is seen and examined. Denies any chest pain, pressure or discomfort, abdominal pain. Reported no appetite and not really drinking much. Initially, the patient was not making bowel movements, subsequently made a massive bowel movement. Had mild temperature elevation overnight. VITAL SIGNS: Maximum temperature (T-max) 100.3, T-current 99.2, pulse 57, respiration 19, blood pressure 122/74, pulse oximetry 99% on room air. LABORATORY DATA: WBC 9.8, hemoglobin and hematocrit 12.5/39.1, platelets 149. Chemistry: Sodium 146, potassium 3.8, chloride 113, bicarbonate 27, BUN 5, creatinine 0.9, bilirubin 1.1. CK is 1393. PHYSICAL EXAMINATION: GENERAL: Patient alert and oriented times three, in no acute distress. HEENT: Normocephalic, atraumatic. PULMONARY: Bilaterally clear to auscultation. CARDIAC: Regular rate and rhythm with normal S1, S2. ABDOMEN: Soft, nontender. Positive bowel sounds. EXTREMITIES: No clubbing, cyanosis, or edema. NEUROLOGIC: No focal neurological deficit. Cranial nerves II-XII grossly intact. ASSESSMENT AND PLAN: This is a 26-year-old male patient with no significant past medical history, who is an inmate at the [facility], was found unresponsive, brought in by emergency medical services (EMS), with suspicions of ketamine overdose, was initially intubated and paralyzed with odd neurological presentation, contractures, subsequently was extubated yesterday. Care transferred from pulmonology service to hospitalist service. PROBLEM LIST: 1. Ketamine overdose. The patient was intubated and paralyzed. Currently off ventilator, comfortable, in no acute distress. Continue to monitor. 2. Encephalopathy. Neurology consulted. We will get MRIs and EEGs appreciated with generalized slowing. Initially on Keppra, currently weaned off of Keppra. Neurologic checks. Followup with neurology for further recommendation. 3. Fever, possibly secondary to atelectasis versus alternative etiology. CT scan of the abdomen appreciated. Chest x-ray appreciated. The patient on Zosyn. We will continue to monitor. Followup cultures. IV fluids. Followup C-reactive protein. 4. Rhabdomyolysis, possibly secondary to drug overdose. IV fluids. Followup creatine kinase (CK). 5. Deep vein thrombosis (DVT) prophylaxis. Heparin subcutaneous. DISPOSITION PLANNING: Pending further workup which includes MRIs, clinical improvement. The patient needs to be afebrile. Followup cultures.
[2017-01-11] MEDS: ACETAMINOPHEN TAB 650MG DOSE (2X325MG) PO PRN (18:33)
[2017-01-11 20:00] VITALS: BP 129/80
[2017-01-12] VITALS: BP 114/65
[2017-01-12] MEDS: LR 1,000 ML IV SCH (03:09)
[2017-01-12 04:00] VITALS: BP 120/71
[2017-01-12 05:02] LABS: BASO % 0.4 % (0.0-1.0); EOS # 0.2 K/mm3 (0.0-0.50); EOS % 2.8 % (0.0-3.0); LARGE UNSTAINED CELL # 0.2 K/mm3 (0.0-0.4); LARGE UNSTAINED CELL % 1.8 % (0.0-4.0); LYMPH # 3.4 K/mm3 (1.5-6.5); LYMPH % 35.6 % (24.0-44.0); MEAN CORPUSCULAR HEMOGLOBIN 27.4 pg (27.0-33.0); MEAN CORPUSCULAR HGB CONC 32.2 g/dl (32.0-36.5); MEAN CORPUSCULAR VOLUME 85.3 fl (80.0-96.0); MONO # 0.5 K/mm3 (0.0-0.8); MONO % 5.9 % (0.0-5.0); NEUTROPHILS # 4.9 K/mm3 (1.8-7.7); NEUTROPHILS % 53.6 % (36.0-66.0); PLATELET COUNT, AUTOMATED 158 k/mm3 (150-450); RED CELL DISTRIBUTION WIDTH 13.9 % (11.5-14.5)
[2017-01-12] MEDS: PIPERACILLIN/TAZOBACTAM SOD 3.375 GM in D5W MINI-BAG PLUS 50 ML IV SCH ×2 (05:19→09:31)
[2017-01-12] MEDS: HEPARIN SOD (PORCINE) 5000 UNITS/ML VIAL SC SCH (05:20)
[2017-01-12 05:21] LABS: ALBUMIN 2.8 GM/DL (3.2-5.2); ALBUMIN/GLOBULIN RATIO 0.88 (1.00-1.93); ALKALINE PHOSPHATASE 44 U/L (45-117); ALT/SGPT 17 U/L (12-78); ANION GAP 10 MEQ/L (8-16); AST/SGOT 31 U/L (15-37); BILIRUBIN,TOTAL 0.8 MG/DL (0.2-1.0); BLOOD UREA NITROGEN 7 MG/DL (7-18); CARBON DIOXIDE LEVEL 26 MEQ/L (21-32); CHLORIDE LEVEL 109 MEQ/L (98-107); CHOLESTEROL LEVEL 148 MG/DL (< 200); CREATININE FOR GFR 0.96 MG/DL (0.70-1.30); GLOMERULAR FILTRATION RATE > 60.0 (>60); GLUCOSE, FASTING 80 MG/DL (70-105); MAGNESIUM LEVEL 1.6 MG/DL (1.8-2.4); PHOSPHORUS LEVEL 3.1 MG/DL (2.5-4.9); POTASSIUM SERUM 3.5 MEQ/L (3.5-5.1); SODIUM LEVEL 145 MEQ/L (136-145); TRIGLYCERIDES LEVEL 73 MG/DL (<150)
[2017-01-12] MEDS ORDERED: MAG SULF 1GM/100ML (MAG RUN) 1 GM in APPROPRIATE DILUENT 1 EA IV ONE (07:30)
[2017-01-12] MEDS ORDERED: POTASSIUM CHLORIDE 10 MEQ SR TABLET PO ONE (07:30)
[2017-01-12 08:00] VITALS: BP 120/72
[2017-01-12] MEDS: ACETAMINOPHEN TAB 650MG DOSE (2X325MG) PO PRN (08:50)
--- NOTE | 2017-01-12 09:42 | REP ---
MRI BRAIN WITHOUT CONTRAST: 01/11/2017. CLINICAL HISTORY: Abnormal EEG. Intermittent headaches. Possible seizures. Overdose a few days ago. COMPARISON: CT 01/08/2017. TECHNIQUE: Sagittal T1 with axial T1, T2, FLAIR gradient-echo and diffusion-weighted images with ADC mapping sequences. FINDINGS: The lateral ventricles are midline, symmetric and without dilatation or displacement. Basal ganglia were symmetric and normal. There are no gonzalez-white junction abnormalities. I see no T2 or FLAIR hyperintense signal foci in either hemisphere. The cortical stripe is preserved. There is no atrophy, intracranial hemorrhage, mass, mass effect or edema. Brainstem was unremarkable. Cerebellum shows no atrophy or mass. I do not see evidence for cerebellar tonsillar ectopia. Corpus callosum, optic chiasm and pituitary were unremarkable. Seventh/eighth cranial nerve complexes, mastoids and visualized sinuses were unremarkable except for some minor ethmoid sinus mucosal thickening anteriorly. Orbits and intraorbital contents are grossly intact. The diffusion weighted images and ADC mapping sequences show no evidence of acute ischemia or restricted water diffusion. IMPRESSION: 1. Normal MRI brain. There is no white matter tract abnormality, restricted water diffusion or acute ischemia. No hemorrhage, mass, infarct or other significant finding. Posterior fossa including brainstem and cerebellum are unremarkable. Signed by Bill Hickman MD 01/12/2017 02:18 P
[2017-01-12] MEDS ORDERED: CEFD1CAP8 PO (10:23)
[2017-01-12 12:05] VITALS: BP 124/73
--- NOTE | 2017-01-12 16:42 | DSES ---
DATE OF ADMISSION: 01/08/2017 DATE OF DISCHARGE: 01/12/2017 PRIMARY CARE PROVIDER: [facility]. FINAL DIAGNOSES: 1. Ketamine overdose. 2. Encephalopathy. 3. Rhabdomyolysis. 4. Aspiration pneumonitis. HISTORY OF PRESENT ILLNESS: This is a 26-year-old male patient with no significant underlying medical history who was brought to [facility] from [facility], found to be unresponsive around 9 a.m. on the day of admission in his [facility] cell, was foaming by the mouth. Once the patient was brought into the [facility], the patient was combative, thrashing around. The patient got 4 mg of Narcan at the [facility]. En route to the emergency room, police or patrol park officer reported the patient was speaking gibberish. Did not notice any seizure activity. In the emergency room the patient was combative and thrashing, was given etomidate, Ativan, of succinylcholine, and propofol. Was on four-point restraints and subsequently intubated. Following intubation, the patient was biting on the tube. Subsequently the patient was started on propofol drip and was paralyzed on ventilator, as well as Versed drip. At the same time, another [facility] came in with also a ketamine overdose. Patient was monitored on a ventilator. Neurology was consulted. Electroencephalogram (EEG) was ordered. The patient's neurologics were followed. Was being slowly weaned off the sedation. Intravenous (IV) fluids were given. Had episodes of fever, started on IV antibiotics. CT of the abdomen was also done. The patient was given Zosyn. Cultures were sent. When patient started following command, sedation medication was provided and patient was weaned off the ventilator and care was transferred from the intensive care to hospitalist service. Further neurology followup was done, MRI was done, EEG was also done showing encephalopathy. Amongst the event, the patient was empirically started on Keppra, which was weaned off. MRI shows normal findings. IV fluids were provided for rhabdomyolysis. Creatine kinase (CK) was monitored. Antibiotics were continued. X-ray was followed. Bowel regimen was given. The patient currently is comfortable with no new complaints. Denies overdosing on any medication. Tolerating oral in no acute distress. Ready for discharge for further care. VITAL SIGNS: Temperature 98.9, pulse 65, respirations 16, blood pressure 124/73, pulse oximetry 100% on room air. LABORATORY DATA: WBC nine, hemoglobin and hematocrit 12.7 over 39.4, platelets 158. Chemistry: Sodium 145, potassium 3.5, chloride 109, bicarbonate 26, BUN seven, creatinine 0.98. PHYSICAL EXAMINATION: GENERAL: Patient alert and oriented times three in no acute distress. HEENT: Normocephalic, atraumatic. PULMONARY: Bilaterally clear to auscultation. CARDIAC: Regular rate and rhythm. Normal S1, S2. ABDOMEN: Soft, nontender. Positive bowel sounds. DISCHARGE MEDICATIONS: Cefdinir 300 mg by mouth twice a day for five more days. DISCHARGE INSTRUCTIONS: Followup with the provider in seven days. See medical provider earlier if symptoms return. Encourage oral intake.
== END 2017-01-12 13:22 | DRG 812 ==
LOC: EDBD → M ED 10:35 → M ED INP 14:33 → M ICU 15:51
PROVIDERS: ADMIT Internal Medicine Pulmonary Disease; ATTEND Hospitalist
PROC: 0BH17EZ Insertion of Endotracheal Airway into Trachea, Via Natural or Artificial Opening (ICD-10-PCS; principal; 2017-01-08)
PROC: 5A1945Z Respiratory Ventilation, 24-96 Consecutive Hours (ICD-10-PCS; 2017-01-08)
DX: T41.292A Poisoning by other general anesthetics, intentional self-harm, initial encounter (principal); J96.91 Respiratory failure, unspecified with hypoxia; J69.0 Pneumonitis due to inhalation of food and vomit; G92 Toxic encephalopathy; E87.3 Alkalosis; M62.82 Rhabdomyolysis; J98.11 Atelectasis; Y92.143 Cell of prison as the place of occurrence of the external cause; Y99.8 Other external cause status

== ENCOUNTER 2017-01-13 09:30 | Emergency (ER) | payer OTHER ==
[~2017-01-13 09:30] MED LIST: CEFD1CAP8 PO
[2017-01-13 09:42] VITALS: O2SAT 100
[2017-01-13] MEDS ORDERED: NS 500 ML IV ONE (10:30)
--- NOTE | 2017-01-13 11:02 | REP ---
Clinical: Altered mental status . Comparison: 01/08/2017 . Findings: The ventricles, sulci, and cisterns are normal in position and appearance. Escoto-white differentiation is maintained. No acute intracranial hemorrhage, mass/mass effect, pathology or trauma/injury. No evidence for acute infarction. No extra-axial fluid collection. Calvarium is intact. Paranasal sinuses and mastoid air cells are clear. Impression: Normal noncontrast head CT. No evidence for acute intracranial pathology or trauma/injury. Signed by Sharath Kaye MD 01/13/2017 10:53 A
[2017-01-13 11:32] LABS: BASO % 0.2 % (0.0-1.0); EOS # 0.1 K/mm3 (0.0-0.50); EOS % 1.2 % (0.0-3.0); LARGE UNSTAINED CELL # 0.1 K/mm3 (0.0-0.4); LARGE UNSTAINED CELL % 2.1 % (0.0-4.0); LYMPH # 1.1 K/mm3 (1.5-6.5); LYMPH % 22.4 % (24.0-44.0); MONO # 0.3 K/mm3 (0.0-0.8); MONO % 6.3 % (0.0-5.0); NEUTROPHILS # 3.4 K/mm3 (1.8-7.7); NEUTROPHILS % 67.9 % (36.0-66.0); PLATELET COUNT, AUTOMATED 182 k/mm3 (150-450); RED CELL DISTRIBUTION WIDTH 13.4 % (11.5-14.5); WHITE BLOOD COUNT 5.1 K/mm3 (4.0-10.0)
[2017-01-13 11:44] LABS: OSMOLALITY SERUM 299 MOSM/KG (275-295)
[2017-01-13 11:57] LABS: ALBUMIN 3.6 GM/DL (3.2-5.2); ALBUMIN/GLOBULIN RATIO 0.97 (1.00-1.93); ALKALINE PHOSPHATASE 55 U/L (45-117); ALT/SGPT 24 U/L (12-78); ANION GAP 9 MEQ/L (8-16); AST/SGOT 34 U/L (15-37); BILIRUBIN,DIRECT < 0.1 MG/DL (0.0-0.2); BILIRUBIN,TOTAL 0.4 MG/DL (0.2-1.0); BLOOD UREA NITROGEN 8 MG/DL (7-18); CALCIUM LEVEL 9.3 MG/DL (8.5-10.1); CARBON DIOXIDE LEVEL 29 MEQ/L (21-32); CHLORIDE LEVEL 107 MEQ/L (98-107); CREATININE FOR GFR 1.01 MG/DL (0.70-1.30); GLOMERULAR FILTRATION RATE > 60.0 (>60); GLUCOSE, FASTING 79 MG/DL (70-105); POTASSIUM SERUM 4.5 MEQ/L (3.5-5.1); SODIUM LEVEL 145 MEQ/L (136-145); TOTAL PROTEIN 7.3 GM/DL (6.4-8.2)
[2017-01-13 13:03] LABS: METHADONE URINE NEGATIVE (NEGATIVE)
[2017-01-13 13:30] VITALS: BP 142/75
--- NOTE | 2017-01-13 17:27 | ECGEPIP ---
Stationary ECG Study [facility] - ED Test Date: 2017-01-13 Pat Name: PARMINDER CUEVAS Department: Room: - Gender: M Health Officer: tyler : 1990 Requested By: RAHAT Morse Order Number: [id number] Reading MD: Ailin Castorena Measurements Intervals [place] Rate: 66 P: 56 NH: 159 QRS: 50 QRSD: 113 T: 19 QT: 409 QTc: 430 Interpretive Statements SINUS RHYTHM IRBBB DECREASED RATE 01/08/17 Electronically Signed On 01-13-2017 17:27:40 EDT by Ailin Castorena
== END 2017-01-13 14:16 | disposition home or self-care (01) ==
LOC: M ED 09:30
DX: R41.82 Altered mental status, unspecified (principal); Z79.2 Long term (current) use of antibiotics
CPT/HCPCS: 70450; 80048; 80076; 80307; 82140; 82550; 83605; 83930; 84443; 85025; 93005; 93041; 94760; 99285; G0480